=== PATIENT | male | born 1955 | race Caucasian/White ===

== ENCOUNTER → 2019-07-11 | Day surgery (SDC) | payer OTHER ==
--- NOTE | 2019-07-07 15:45 | Diagnostic Imaging Report ---
Chest, 2 views, 07/07/2019. History: Preop, right inguinal hernia. Comparison: None available. Findings: The cardiomediastinal silhouette and pulmonary vasculature are within normal limits. The lungs are clear without evidence of consolidation or pleural effusion. There are no acute osseous or soft tissue abnormalities. Impression: No acute cardiopulmonary abnormality. Signed by: Ashok Hernandez on 07/07/2019 3:42 PM
[2019-07-07 16:37] LABS: BASOPHILS % 0.6 % (0.0-1.0); EOSINOPHILS # (AUTO) 0.2 (0.0-0.4); EOSINOPHILS % 2.9 % (0.0-6.0); HEMATOCRIT 42.7 % (38.2-49.6); HEMOGLOBIN 14.4 g/dL (14.0-18.0); LYMPHOCYTES # (AUTO) 1.6 (1.0-3.2); LYMPHOCYTES % 23.7 % (18.0-39.1); MEAN CORPUSCULAR HEMOGLOBIN 30.4 pg (28-32); MEAN CORPUSCULAR HGB CONC 33.7 g/dL (31-35); MEAN CORPUSCULAR VOLUME 90.1 fL (81-99); MONOCYTES # (AUTO) 0.7 (0.2-0.8); MONOCYTES % 9.4 % (4.4-11.3); NEUTROPHILS # (AUTO) 4.4 (2.1-6.9); NEUTROPHILS % 63.1 % (38.7-80.0); PLATELET COUNT 237 x10e3/uL (140-360); RED BLOOD COUNT 4.74 x10e6/uL (4.3-5.7); RED CELL DISTRIBUTION WIDTH 12.6 % (11.7-14.4)
[2019-07-07 17:02] LABS: ANION GAP 12.7 mmol/L (8-16); BLOOD UREA NITROGEN 10 mg/dL (7-26); BUN/CREATININE RATIO 10 (6-25); CALCIUM 9.7 mg/dL (8.4-10.2); CARBON DIOXIDE 29 mmol/L (22-29); CHLORIDE 104 mmol/L (98-107); CREATININE, SERUM 0.98 mg/dL (0.72-1.25); EST GLOMERULAR FILTRATION RATE > 60 ML/MIN (60-); GLUCOSE 96 mg/dL (74-118); POTASSIUM 4.7 mmol/L (3.5-5.1); SODIUM 141 mmol/L (136-145)
[~2019-07-11] MED LIST: ACETAMINOPHEN 1000 MG/100 ML IV ONE; BUPIVACAINE 0.25%/EPI 30ML SDV INJ ONE; COQ-10100 MG PO; DEXAMETHASONE SOD PHOS INJ 4 MG/ML VIAL ONE; EPHEDRINE SULFATE INJ 50 MG/10 ML SYR ONE; FENTANYL CITRATE/PF 100MCG/2 ML INJ ONE; GREEN COFFEE; LIDOCAINE HCL 1% 30ML-PF VIAL ONE; LIDOCAINE HCL 2% LOCAL INJ 5 ML SDV VIAL INJ ONE; MAGNESIUM; MIDAZOLAM HCL 2 MG/2 ML VIAL ONE; MORPHINE SULFATE INJ 10 MG/ML ONE; MULTIVITAMIN; NAPROXEN250 MG PO; ONDANSETRON HCL INJ 2MG/ML 2ML 2 MG/ML VIAL ONE; PROBIOTIC & AC1 EACH PO; PROPOFOL IV EMULSION 10 MG/ML 20 ML VIAL ONE; SEVOFLURANE INHAL SOLN 250 ML PEN BTL ONE; VITAMIN B-121000 MCG PO; VITAMIN C1000 MG PO; VITAMIN D1000 UNI1 PO; VITAMIN E400 UNIT PO
--- OUTSIDE RECORDS SUMMARY | 2019-07-11 06:30 | XMS REPORT ---
Author Author [facility] Address Unknown Phone Unavailable Care Team Providers Care Label Machine Operator Name Role Phone Mary Grace WILKINSON Unavailable Unavailable Problems This patient has no known problems. Allergies, Adverse Reactions, Alerts This patient has no known allergies or adverse reactions. Medications This patient has no known medications. Results Test Description Test Time Test Comments Text Results Atomic Results Result Comments CHEST 2 VIEWS 2019-07-07 15:41:00 [place] [address] Patient Name: MARY LILLY MR #: [id number] : 1955 Age/Sex: 64/M Req #: [id number] [facility] Physician: Ordered by: J CARLOS WILKINSON MD Report #: [id number] Location: OR Room/Bed: Procedure: [id number] DX/CHEST 2 VIEWS Exam Date: 07/07/19 Exam Time: 1431 REPORT STATUS: Signed Chest, 2 views, 07/07/2019. History: Preop, right inguinal hernia. Comparison: None available. Findings: The cardiomediastinal silhouette and pulmonary vasculature are within normal limits. The lungs are clear without evidence of consolidation or pleural effusion. There are no acute osseous or soft tissue abnormalities. Impression: No acute cardiopulmonary abnormality. Signed by: Angie Hernandez on 07/07/2019 3:42 PM Dictated By: ANGIE HERNANDEZ MD 154 Transcribed By: DEBBIE on 07/07/191541 COPY TO: J CARLOS WILKINSON MD
--- NOTE | 2019-07-11 12:50 | Operative Report ---
DATE OF PROCEDURE: 07/11/2019 SURGEON: Arcenio Matias MD PREOPERATIVE DIAGNOSIS: Right inguinal hernia. POSTOPERATIVE DIAGNOSIS: Right inguinal hernia. OPERATION PERFORMED: Repair of right inguinal hernia with extended Prolene hernia system. ANESTHESIA: General. COMPLICATIONS: None. ESTIMATED BLOOD LOSS: Minimal. DESCRIPTION OF PROCEDURE: With the patient lying in bed in the supine position under good general endotracheal anesthesia, the abdomen was prepped with Betadine solution and draped in the usual manner. A right inguinal incision was made, it was carried down through the subcutaneous tissue down to the external oblique aponeurosis. External oblique was then opened along the length of its fibers and the external inguinal ring was opened. The cord was then mobilized and retracted, contained within the cord, it was a large hernia sac, which was from the cord structures. The hernia sac was rather thickened and showed signs of intermittent chronic inflammatory process, likely secondary to intermittent incarceration. The hernia sac was dissected all the way down to his neck. The hernia sac was then opened and there was some omental adhesions within it, which were taken down, reduced back to the intraabdominal cavity. After this was done, the sac was then closed with a pursestring suture of 2-0 Ethibond and 2-0 Ethibond tied, direct the excess was resected. The preperitoneal space was then entered and a pocket was created without any difficulty. An extended Prolene hernia system was then placed in the preperitoneal space and the underlay patch was deployed without any problems. The overlay patch was then placed over the floor and split inferolaterally to allow for passage of the cord. The mesh was then sutured to the conjoined tendon and the inguinal ligament using interrupted sutures of 2-0 Vicryl. The whole area was thoroughly irrigated. Perfect hemostasis was ascertained. All layers were infiltrated on the way out with solution of 0.25% Marcaine and 1% lidocaine mixed in equal parts. The external oblique aponeurosis was then closed with a running suture of 2-0 Vicryl, the subcutaneous tissue was approximated with 3-0 plain, and the skin was closed with clips. A dressing was applied. The sponge, lap, and needle counts were correct. The patient tolerated the procedure well and returned to the recovery room in stable condition. MD CLAUDINE Jerome/PAYAL /[id number]
[2019-07-11 12:55] VITALS: BP 135/71
== END | disposition home or self-care (01) ==
LOC: OR 06:15
PROVIDERS: ATTEND Surgery
DX: K40.30 Unilateral inguinal hernia, with obstruction, without gangrene, not specified as recurrent (principal); Z01.810 Encounter for preprocedural cardiovascular examination; Z01.812 Encounter for preprocedural laboratory examination; Z01.811 Encounter for preprocedural respiratory examination; Z91.041 Radiographic dye allergy status; F41.9 Anxiety disorder, unspecified; F17.210 Nicotine dependence, cigarettes, uncomplicated
CPT/HCPCS: 36415; 71046; 80048; 85025; 88302; 93005; C1781; J1100; J2001; J2250; J2270; J2405; J3010

== ENCOUNTER → 2019-09-18 | Day surgery (SDC) | payer OTHER ==
[~2019-09-18] MED LIST changes: -ACETAMINOPHEN 1000 MG/100 ML IV ONE; -BUPIVACAINE 0.25%/EPI 30ML SDV INJ ONE; +BUPIVACAINE HCL 0.5% INJ 30 ML VIAL INJ ONE; +CEFAZOLIN SOD 1 GM/NS 50ML 50 ML IV ONE; -DEXAMETHASONE SOD PHOS INJ 4 MG/ML VIAL ONE; -EPHEDRINE SULFATE INJ 50 MG/10 ML SYR ONE; +GLUCOSAMINE CH1 EA10 PO; +GLYCOPYRROLATE INJ 1MG/ 5 ML SYR ONE; +LIDOCAINE 1% W/EPINEPHRINE 20 ML VIAL ONE; -LIDOCAINE HCL 1% 30ML-PF VIAL ONE; +LYSINE1000 MG PO; -MORPHINE SULFATE INJ 10 MG/ML ONE; +MUPIROCIN 2% OINT 22 GM TUBE ONE; -SEVOFLURANE INHAL SOLN 250 ML PEN BTL ONE; +[UNRECOGNIZED DRUG - OTHER] PO
--- NOTE | 2019-09-18 07:05 | NUR ---
SPIRITUAL CARE - Pre-Surgery Assessment: Pt in bed. Pt reported supportive attention from family and friends. Intervention: I provided pastoral presence, hospitality, and sympathetic listening. I acquainted pt with availability of production scheduler while hospitalized. Outcome: Pt expressed appreciation for visit. No need for follow up indicated at this time. RODNEY [facility] Spiritual Care Department O: [phone] Pager: [phone] ([phone] number calling from)
[2019-09-18 09:25] VITALS: BP 121/73
--- NOTE | 2019-09-18 12:58 | Operative Report ---
DATE OF PROCEDURE: 09/18/2019 SURGEON: Leighton Gonzalez MD PREOPERATIVE DIAGNOSIS: Mass, right palm. POSTOPERATIVE DIAGNOSIS: Mass, right palm, pending final pathology. PROCEDURE: Excision of mass subfascial, right palm. ANESTHESIA: General. HISTORY: The patient is a 64-year-old [id number] male, who has an enlarging mass on the right palm for approximately one year. Risks, benefits, and alternatives of treatment were discussed with the patient. He is prepared to undergo the procedure as outlined. PROCEDURE IN DETAIL: The patient was marked preoperatively in the holding area. He was brought to the operating theater. After the induction of adequate general anesthesia, he was prepped and draped in a supine position and a time-out was performed. The procedure was begun by encircling the mass. The right upper extremity was exsanguinated and the tourniquet was inflated to a pressure of 250 mmHg. The incision was made through the skin and subcutaneous tissue. Venous tributaries were controlled with the bipolar cautery. The mass was noted to extend to the palmar fascia, so for this reason, the palmar fascia was incised and then the entire area was excised en bloc from skin all the way down to palmar fascia. The neurovascular bundle was underneath the fascia visualized and was well protected and preserved. The mass was then sent for permanent pathologic examination. The wounds were irrigated with bacteriostatic saline and closed with a 5-0 nylon in an interrupted horizontal mattress fashion. A Marcaine field block was performed at the operative site. Tourniquet was deflated. All the fingers pinked up nicely and a sterile bulk conforming bandage was applied. The patient tolerated the procedure well and was brought to recovery room in satisfactory condition and discharged with a postoperative instruction sheet as well as a followup appointment. Leighton Gonzalez MD ER/MODL /[id number]
== END | disposition home or self-care (01) ==
LOC: OR 06:05
PROVIDERS: ATTEND Plastic Surgery
DX: R22.31 Localized swelling, mass and lump, right upper limb (principal); M60.241 Foreign body granuloma of soft tissue, not elsewhere classified, right hand
CPT/HCPCS: 26116; 88304; J0690; J2001; J2250; J2405; J2704; J3010; J3490

== ENCOUNTER → 2020-06-28 | Outpatient (CLI) | payer OTHER ==
[~2020-06-28] MED LIST changes: -BUPIVACAINE HCL 0.5% INJ 30 ML VIAL INJ ONE; -CEFAZOLIN SOD 1 GM/NS 50ML 50 ML IV ONE; -FENTANYL CITRATE/PF 100MCG/2 ML INJ ONE; -GLYCOPYRROLATE INJ 1MG/ 5 ML SYR ONE; -LIDOCAINE 1% W/EPINEPHRINE 20 ML VIAL ONE; -LIDOCAINE HCL 2% LOCAL INJ 5 ML SDV VIAL INJ ONE; -MIDAZOLAM HCL 2 MG/2 ML VIAL ONE; -MUPIROCIN 2% OINT 22 GM TUBE ONE; -ONDANSETRON HCL INJ 2MG/ML 2ML 2 MG/ML VIAL ONE; -PROPOFOL IV EMULSION 10 MG/ML 20 ML VIAL ONE
--- NOTE | 2020-06-29 08:48 | Diagnostic Imaging Report ---
EXAM: Renal Ultrasound INDICATION: ^MICROSCOPIC HEMATURIA COMPARISON: None TECHNIQUE: Transverse and longitudinal images of the kidneys and bladder were obtained. FINDINGS: Right Kidney: Length: 11.1 cm Appearance: Normal echogenicity. Collecting system: No hydronephrosis Stones: None Cyst/Mass: None Left Kidney: Length: 10.1 cm Appearance: Normal echogenicity. Collecting system: No hydronephrosis Stones: None Cyst/Mass: 2.8 x 2.3 x 2.9 cm anechoic mid pole simple cyst. Bladder: No mass or calculi. Bilateral ureteral jets visualized. Prevoid volume estimate of 426 cc. The prostate measures 4.5 x 4.5 x 5.9 cm with volume estimate of 62 cc. IMPRESSION: No hydronephrosis or renal calculi. Left mid pole anechoic simple cyst. Prostatomegaly. Signed by: Franny Munoz MD on 06/29/2020 8:45 AM
== END ==
LOC: US 15:46
PROVIDERS: ATTEND Internal Medicine
DX: R31.21 Asymptomatic microscopic hematuria (principal)
CPT/HCPCS: 76770